=== PATIENT | female | born 2000 | race Hispanic/Latino ===

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

== ENCOUNTER 2021-08-04 18:34 | Emergency (ER) | payer SELFPAY | END 2021-08-04 18:35 | disposition left against medical advice (07) | LOC: ED 18:34 | DX: O20.8 Other hemorrhage in early pregnancy (principal); Z53.21 Procedure and treatment not carried out due to patient leaving prior to being seen by health care provider; Z3A.01 Less than 8 weeks gestation of pregnancy ==